=== PATIENT | female | born 1955 | race Caucasian/White ===

== ENCOUNTER 2017-11-12 20:30 | Observation (INO) ==
[2017-11-12] MEDS ORDERED: Aspirin 81 MG TAB.CHEW PO ONE (20:45)
--- NOTE | 2017-11-12 20:53 | Emergency Department Note ---
Disposition Clinical Impression: Hyponatremia, Hypertensive urgency, Foreign body sensation in throat Chest pain Qualifiers: Chest pain type: unspecified Qualified Code(s): R07.9 - Chest pain, unspecified Disposition: Admitted As Inpatient Condition: Fair Referrals: Elda Anders [Primary Care Provider] - Forms: ED Satisfaction Letter Time of Disposition: 22:49 Chest Pain HPI - General Chief Complaint: ED Chest Pain Stated Complaint: cp Time Seen by Provider: 11/12/17 20:37 Source: patient, family Mode of arrival: ambulatory Limitations: no limitations Vital Signs Reviewed: Yes Nursing Notes Reviewed: Yes - History of Present Illness HPI Narrative: Patient presents to the ED with chief complaint of chest pain. States that it started earlier in the day. She actually went to go see her PCP and they said that she was very hypertensive. They were going to get lab work, but told her if she started feeling worse to go to the ER. States she just does not feel well. She is slightly short of breath as well. States that the heavy pressure in her chest. Does not radiate. Denies any fever or chills. No abdominal pain , nausea, vomiting, diarrhea. Severity scale (1-10): 3 - Related Data Home Medications Medication Instructions Recorded Confirmed Aspirin 81 mg PO DAILY 11/24/15 11/12/17 Bupropion HCl [Wellbutrin Xl] 300 mg PO DAILY 11/24/15 11/12/17 Cholecalciferol (Vitamin D3) 5,000 unit PO QWEEK 11/24/15 11/12/17 [Vitamin D3] FLUoxetine HCl [Prozac] 20 mg PO DAILY 11/24/15 11/12/17 Fexofenadine HCl 180 mg PO DAILY 11/24/15 11/12/17 Gabapentin [Neurontin] 300 mg PO DAILY 11/24/15 11/12/17 Multivitamin with Iron 1 each PO DAILY 11/24/15 11/12/17 [Multivitamins with Iron] Simvastatin [Zocor] 20 mg PO QPM 11/24/15 11/12/17 Trazodone HCl 150 mg PO HS 11/24/15 11/12/17 metFORMIN [Glucophage] 500 mg PO BIDWM 11/24/15 11/12/17 risperiDONE [Risperidone] 1 mg PO DAILY 11/24/15 11/12/17 Lisinopril-HCTZ 20-12.5 [Prinzide 1 each PO DAILY 12/08/15 11/12/17 20-12.5] Omeprazole [PriLOSEC] 20 mg PO DAILY 12/10/15 11/12/17 Montelukast Sodium [Singulair] 10 mg PO DAILY 12/31/16 11/12/17 Ferrous Sulfate [Iron] 325 mg PO DAILY 10/20/17 11/12/17 Buspirone HCl [Buspar] 10 mg PO BID PRN 11/12/17 11/12/17 Guaifenesin [Mucinex] 600 mg PO BID 11/12/17 11/12/17 Previous Rx's Medication Instructions Recorded Loratadine [Claritin] 10 mg PO DAILY #10 tablet 10/20/17 Allergies Allergy/AdvReac Type Severity Reaction Status Date / Time codeine AdvReac Hives Verified 10/20/17 14:29 bees Allergy Mild Hives Uncoded 10/20/17 14:29 Review of Systems: As reviewed in the HPI. All other systems reviewed are negative or normal. Chest Pain PMH - Past Medical History Medical history: Reports: COPD, diabetes, GERD, hyperlipidemia, hypertension Surgical history: Reports: non-contributory, hysterectomy, other Psychiatric history: Reports: anxiety, depression, other - Social History Smoking Status: Never smoker Alcohol use: Reports: none Drug use: Reports: none Physical Exam CONSTITUTIONAL: [well appearing, alert and in no acute distress] EYES: [EOMI, clear conjunctiva, PERRLA] HENT: [Normocephalic, atraumatic, moist mucus membranes, normal oropharynx] NECK: [normal inspection, full ROM, trachea midline, no obvious swelling] PULMONARY: [normal lung sounds bilaterally, normal chest rise and fall, no respiratory distress or stridor, no wheezes, no rales, no rhonchi CARDIOVASCULAR: [regular rate, regular rhythm, normal heart sounds, no murmurs, distal extremities are warm and well perfused] GASTROINSTESTINAL: [soft, non-tender, non-rigid, non-distended, no guarding, no rebound, normal bowel sounds] GENITOURINARY/RECTAL: [deferred] NEUROLOGIC: [Alert, oriented x3, normal speech, moves all extremities] EXTREMITIES: [Normal inspection, full ROM, no tenderness, no pedal edema, normal capillary refill] MUSCULOSKELETAL: [no gross deformities, atraumatic] SKIN: [No cyanosis, no diaphoresis, normal color, warm, no rash] PSYCHIATRIC: [normal mood and affect] - General Limitations: no limitations General appearance: alert, in no apparent distress Course Course Narrative: Patient presenting with chest pain. We will get workup. - Reevaluation(s) Reevaluation #1: Patient reevaluated. Patient states that 3 days ago she had a trazodone pill stuck in her throat. Started having chest pain after that. She went to an outside hospital is that she would probably need to be scoped or have an esophageal dilation. States she has had some trouble swallowing and food getting caught. States that the pain is gone now. She does report she has been unable to take her pills because she has been having the crush them up and has had trouble swallowing. Patient is also quite anxious. States that she does not tolerate scanners well and did not want any CAT scans. She states that the Ativan did help, but she still did not feel like her symptoms were gone. Time: 22:36 Reevaluation #2: Patient admitted to the hospital service. Vital Signs Temperature 98.4 F 11/12/17 20:41 Pulse Rate 112 11/12/17 20:41 Respiratory Rate 20 11/12/17 20:41 Blood Pressure 200/92 11/12/17 20:41 O2 Sat by Pulse Oximetry 95 11/12/17 20:41 Temperature 98.4 F 11/12/17 20:41 Pulse Rate 94 11/12/17 22:00 Respiratory Rate 20 11/12/17 20:41 Blood Pressure 193/99 11/12/17 22:00 O2 Sat by Pulse Oximetry 93 11/12/17 22:00 Oxygen Delivery Oxygen Delivery Room Air Chest Pain - Medical Records Medical records reviewed: Yes I reviewed the patient's medical records. - Lab Data Lab results reviewed: Yes I reviewed the patient's lab results. Result diagrams: 11/12/17 20:45 11/12/17 20:45 Lab Results 11/12/17 11/12/17 11/12/17 Range/Units 20:41 20:45 20:45 WBC 15.7 H (4.3-11.1) K/mcL RBC 4.63 (3.82-4.97) M/mcL Hgb 12.3 (11.5-15.4) g/dL Hct 34.2 L (35.3-44.9) % MCV 73.9 L (83.0-100.0) fL MCH 26.6 L (28.0-33.3) pg MCHC 36.0 H (31.6-35.5) g/dL RDW 12.5 (11.5-14.5) % Plt Count 482 H (140-400) K/mcL MPV 9.0 L (9.4-12.4) fL Immature Gran % 1.8 (0-4) % Seg Neutrophils % 88.4 % Lymphocytes % 7.9 % Monocytes % 1.6 % Eosinophils % 0.1 % Basophils % 0.2 % Neutrophils # 13.9 H (1.6-8.9) K/mcL Lymphocytes # 1.3 (0.6-4.6) K/mcL Monocytes # 0.3 (0.0-1.3) K/mcL Eosinophils # 0.0 (0.0-0.6) K/mcL Basophils # 0.0 (0.0-0.2) K/mcL Immature Plt Fraction 3.6 (1.1-6.1) % D-Dimer < 215 (0-500) ng/mLFEU Sodium 121 L (136-145) mEq/L Potassium 4.5 (3.5-5.1) mEq/L Chloride 84 L (98-107) mEq/L Carbon Dioxide 22 L (23-29) mEq/L BUN 9 (8-23) mg/dL Creatinine 0.81 (0.60-1.20) mg/dL Est GFR ( Amer) > 60 (> 60) Est GFR (Non-Af Amer) > 60 (> 60) BUN/Creatinine Ratio 11 (6-26) Glucose 206 H (70-105) mg/dL Calculated Osmolality 257 L (280-300) Calcium 10.5 H (8.6-10.3) mg/dL Troponin I < 0.03 (< 0.04) ng/mL - Radiology Data Radiology results reviewed: Yes I reviewed the patient's radiology results. - EKG Data EKG attestation: Yes I reviewed and interpreted this EKG. EKG results narrative: Sinus tach, rate 111, normal axis, no acute ischemic changes, normal intervals
[2017-11-12 21:00] LABS: Basophils % 0.2 %; Eosinophils % 0.1 %; Hematocrit 34.2 % (35.3-44.9); Hemoglobin 12.3 g/dL (11.5-15.4); Immature Granulocytes % 1.8 % (0-4); Immature Platelets 3.6 % (1.1-6.1); Lymphocytes # 1.3 K/mcL (0.6-4.6); Lymphocytes % 7.9 %; Mean Corpuscular Hemoglobin 26.6 pg (28.0-33.3); Mean Corpuscular Volume 73.9 fL (83.0-100.0); Monocytes # 0.3 K/mcL (0.0-1.3); Monocytes % 1.6 %; Neutrophils # 13.9 K/mcL (1.6-8.9); Platelet Count 482 K/mcL (140-400); Red Blood Count 4.63 M/mcL (3.82-4.97); Red Cell Distribution Width 12.5 % (11.5-14.5); Segmented Neutrophils % 88.4 %
[2017-11-12 21:21] LABS: BUN/Creatinine Ratio 11 (6-26); Blood Urea Nitrogen 9 mg/dL (8-23); Calcium 10.5 mg/dL (8.6-10.3); Carbon Dioxide 22 mEq/L (23-29); Chloride 84 mEq/L (98-107); Glucose 206 mg/dL (70-105); Osmolality,Calculated 257 (280-300); Potassium 4.5 mEq/L (3.5-5.1); Sodium 121 mEq/L (136-145); Troponin I < 0.03 ng/mL (< 0.04); eGFR For Non-African Americans > 60 (> 60)
[2017-11-12] MEDS ORDERED: *HR* Labetalol 100 MG/20 ML MDV IVP ONE ×2 (21:31→22:32)
[2017-11-12] MEDS ORDERED: 0.9 % Sodium Chloride 1,000 ML IVC ONE (21:32)
--- NOTE | 2017-11-12 21:50 | Emergency Department Note ---
Disposition Clinical Impression: Hyponatremia, Chest pain, Hypertensive urgency, Foreign body sensation in throat Disposition: Admitted As Inpatient Condition: Fair General Adult HPI - General Chief complaint: ED Chest Pain Stated complaint: cp Time Seen by Provider: 11/12/17 20:37 Source: patient, family Mode of arrival: ambulatory Limitations: no limitations - History of Present Illness Pain Scale: 3 - Related Data Home Medications Medication Instructions Recorded Confirmed Aspirin 81 mg PO DAILY 11/24/15 11/12/17 Bupropion HCl [Wellbutrin Xl] 300 mg PO DAILY 11/24/15 11/12/17 Cholecalciferol (Vitamin D3) 5,000 unit PO QWEEK 11/24/15 11/12/17 [Vitamin D3] FLUoxetine HCl [Prozac] 20 mg PO DAILY 11/24/15 11/12/17 Fexofenadine HCl 180 mg PO DAILY 11/24/15 11/12/17 Gabapentin [Neurontin] 300 mg PO DAILY 11/24/15 11/12/17 Multivitamin with Iron 1 each PO DAILY 11/24/15 11/12/17 [Multivitamins with Iron] Simvastatin [Zocor] 20 mg PO QPM 11/24/15 11/12/17 Trazodone HCl 150 mg PO HS 11/24/15 11/12/17 metFORMIN [Glucophage] 500 mg PO BIDWM 11/24/15 11/12/17 risperiDONE [Risperidone] 1 mg PO DAILY 11/24/15 11/12/17 Lisinopril-HCTZ 20-12.5 [Prinzide 1 each PO DAILY 12/08/15 11/12/17 20-12.5] Omeprazole [PriLOSEC] 20 mg PO DAILY 12/10/15 11/12/17 Montelukast Sodium [Singulair] 10 mg PO DAILY 12/31/16 11/12/17 Ferrous Sulfate [Iron] 325 mg PO DAILY 10/20/17 11/12/17 Buspirone HCl [Buspar] 10 mg PO BID PRN 11/12/17 11/12/17 Guaifenesin [Mucinex] 600 mg PO BID 11/12/17 11/12/17 Previous Rx's Medication Instructions Recorded Loratadine [Claritin] 10 mg PO DAILY #10 tablet 10/20/17 Allergies Allergy/AdvReac Type Severity Reaction Status Date / Time codeine AdvReac Hives Verified 10/20/17 14:29 bees Allergy Mild Hives Uncoded 10/20/17 14:29 Past Medical History - Past Medical History Medical history: Reports: COPD, diabetes, GERD, hyperlipidemia, hypertension Surgical history: Reports: non-contributory, hysterectomy, other Psychiatric history: Reports: anxiety, depression, other - Social History Smoking Status: Never smoker Smokeless Tobacco Status: No Alcohol use: Reports: none Drug use: Reports: none Physical Exam - General Limitations: no limitations General appearance: alert, in no apparent distress Course Vital Signs Temperature 98.4 F 11/12/17 20:41 Pulse Rate 112 11/12/17 20:41 Respiratory Rate 20 11/12/17 20:41 Blood Pressure 200/92 11/12/17 20:41 O2 Sat by Pulse Oximetry 95 11/12/17 20:41 Temperature 98.0 F 11/12/17 23:52 Pulse Rate 97 11/12/17 23:52 Respiratory Rate 16 11/12/17 23:52 Blood Pressure 181/81 11/12/17 23:52 O2 Sat by Pulse Oximetry 95 11/12/17 23:52 Oxygen Delivery Oxygen Delivery Room Air Medical Decision Making - Lab Data Result diagrams: 11/12/17 20:45 11/12/17 20:45 Lab Results 11/12/17 11/12/17 11/12/17 Range/Units 20:41 20:45 20:45 WBC 15.7 H (4.3-11.1) K/mcL RBC 4.63 (3.82-4.97) M/mcL Hgb 12.3 (11.5-15.4) g/dL Hct 34.2 L (35.3-44.9) % MCV 73.9 L (83.0-100.0) fL MCH 26.6 L (28.0-33.3) pg MCHC 36.0 H (31.6-35.5) g/dL RDW 12.5 (11.5-14.5) % Plt Count 482 H (140-400) K/mcL MPV 9.0 L (9.4-12.4) fL Immature Gran % 1.8 (0-4) % Seg Neutrophils % 88.4 % Lymphocytes % 7.9 % Monocytes % 1.6 % Eosinophils % 0.1 % Basophils % 0.2 % Neutrophils # 13.9 H (1.6-8.9) K/mcL Lymphocytes # 1.3 (0.6-4.6) K/mcL Monocytes # 0.3 (0.0-1.3) K/mcL Eosinophils # 0.0 (0.0-0.6) K/mcL Basophils # 0.0 (0.0-0.2) K/mcL Immature Plt Fraction 3.6 (1.1-6.1) % D-Dimer < 215 (0-500) ng/mLFEU Sodium 121 L (136-145) mEq/L Potassium 4.5 (3.5-5.1) mEq/L Chloride 84 L (98-107) mEq/L Carbon Dioxide 22 L (23-29) mEq/L BUN 9 (8-23) mg/dL Creatinine 0.81 (0.60-1.20) mg/dL Est GFR ( Amer) > 60 (> 60) Est GFR (Non-Af Amer) > 60 (> 60) BUN/Creatinine Ratio 11 (6-26) Glucose 206 H (70-105) mg/dL Calculated Osmolality 257 L (280-300) Calcium 10.5 H (8.6-10.3) mg/dL Troponin I < 0.03 (< 0.04) ng/mL Attestation Statement - Attestation Attestation: I examined this patient and my medical decision-making was reviewed with the Resident Physician. I agree with the documented findings, disposition and treatment plan as described except to the extent set forth below. Patient presents to the ED with a chief complaint of chest heaviness. Onset a couple of hours ago. Patient saw her PCP earlier today for high blood pressure. She states they "did not really do anything." She states now her chest feels heavy. On examination of the blood pressure 200/92. Heart regular lungs clear and she is in no distress. Plan. Cardiac workup with d-dimer. Labetalol reevaluate. Patient's blood pressure improved to 160 systolic after IV labetalol. Cardiac workup is negative. She is admitted to medicine for further workup. Chest X-Ray 11/12/17 20:45 IMPRESSION: No acute pulmonary process. D/ / Carlos Mcdonald / Carlos Mcdonald Interpreting Provider: Carlos Mcdonald
[2017-11-12] MEDS ORDERED: *HR* LORazepam 2 MG/ML VIAL IVP ONE (22:04)
[2017-11-12] MEDS ORDERED: Ketorolac 30 MG/ML VIAL IVP ONE (23:35)
[2017-11-12] MEDS ORDERED: Dextrose Gel 15 GM/37.5 ML TUBE PO PRN ×2 (23:37)
[2017-11-12] MEDS ORDERED: 0.9 % Sodium Chloride 1,000 ML IVC SCH (23:45)
[2017-11-12] MEDS ORDERED: cloNIDine HCl 0.1 MG TABLET PO ONE (23:59)
--- NOTE | 2017-11-13 00:11 | Internal Med History&Physical ---
Date of Encounter: 11/12/17 Time of Encounter: 23:59 Internal Medicine - H&P: HPI Chief complaint: Chest heaviness Admitted From: Home Plans for Post Hospital Care: Home History of present illness: Mariel Stephen is a 62 year old woman with diabetes and poorly controlled hypertension who presents to the ER with the complaint of chest heaviness that started today. Information obtained from her is that over the past few days her blood pressure has been significantly uncontrolled and that she saw her PCP earlier today with no recommendations given. She then began to feel as though her chest was heavy which is a new occurrence therefore decided to seek medical attention. On arrival her blood pressure was 200/92 mmHg. Thus far she was given 20 mg of labetalol IVP with no significant response. She also received loading dose of aspirin and 1 mg of lorazepam for anxiety. She had no ischemic electrocardiographic changes and her initial troponin was negative. She denies an active smoking history stating that she quit 3 years ago. On a different note, she states that a few days ago while swallowing one of her tablets she felt it became stuck in her throat and she had difficulty swallowing after that. Now she says that although she was able to push the pill down she feels significant soreness in her throat with ongoing difficulty swallowing solids and can only tolerate pureed and full liquids. Past Med Surg Social Fam HX - Past Medical History Medical history: COPD, diabetes, GERD, hyperlipidemia, hypertension Psychiatric history: anxiety, depression, other - Past Surgical History Surgical History: non-contributory, hysterectomy, other Additional surgical history: partial hysterectomy, tubal ligation - Social History Smoking Status: Never smoker Smokeless Tobacco Status: No Alcohol use: none Drug use: none - Family History Mother Living Status: Still Living Hx Family Cardiac Disorders: Yes (HTN) Father Living Status: Hx Family Cardiac Disorders: Yes Hx Family Endocrine Disorder: Yes (DM) Internal Medicine - H&P: Meds Aspirin 81 mg PO DAILY 11/24/15 [History] Bupropion HCl [Wellbutrin Xl] 300 mg PO DAILY 11/24/15 [History] Cholecalciferol (Vitamin D3) [Vitamin D3] 5,000 unit PO QWEEK 11/24/15 [History] FLUoxetine HCl [Prozac] 20 mg PO DAILY 11/24/15 [History] Fexofenadine HCl 180 mg PO DAILY 11/24/15 [History] Gabapentin [Neurontin] 300 mg PO DAILY 11/24/15 [History] Multivitamin with Iron [Multivitamins with Iron] 1 each PO DAILY 11/24/15 [ History] Simvastatin [Zocor] 20 mg PO QPM 11/24/15 [History] Trazodone HCl 150 mg PO HS 11/24/15 [History] metFORMIN [Glucophage] 500 mg PO BIDWM 11/24/15 [History] risperiDONE [Risperidone] 1 mg PO DAILY 11/24/15 [History] Lisinopril-HCTZ 20-12.5 [Prinzide 20-12.5] 1 each PO DAILY 12/08/15 [History] Omeprazole [PriLOSEC] 20 mg PO DAILY 12/10/15 [History] Montelukast Sodium [Singulair] 10 mg PO DAILY 12/31/16 [History] Ferrous Sulfate [Iron] 325 mg PO DAILY 10/20/17 [History] Loratadine [Claritin] 10 mg PO DAILY #10 tablet 10/20/17 [Rx] Buspirone HCl [Buspar] 10 mg PO BID PRN 11/12/17 [History] Guaifenesin [Mucinex] 600 mg PO BID 11/12/17 [History] 3 Allergy/AdvReac Type Severity Reaction Status Date / Time codeine AdvReac Hives Verified 10/20/17 14:29 bees Allergy Mild Hives Uncoded 10/20/17 14:29 All Systems PM: A 10-system review of systems was performed and is negative for pertinent findings except as documented above in the HPI. - Constitutional Vitals: Temp Pulse Resp BP Pulse Ox 98.0 F 97 16 181/81 95 11/12/17 23:52 11/12/17 23:52 11/12/17 23:52 11/12/17 23:52 11/12/17 23:52 Exam: Vitals: Reviewed General: Obese, NAD Skin: Warm and supple HEENT: Moist mucous membranes. No conjunctivae pallor. Neck: No lymphadenopathy. No JVD. No carotid bruits. No palpable thyroid. Chest: Normal thoracic expansion. Normal breath sounds. Clear to auscultation. Heart: Normal S1 & S2; rhythmic. No rubs or murmurs. Abdomen: Non-distended, soft and non-tender to palpation. No peritoneal reaction. Extremities: No clubbing, cyanosis or edema. No calf tenderness. Normal distal pulses. Neurological: Awake, alert and oriented to person, place and time. No focal deficits. Psych: Affect appropriate. Internal Med - H&P Results - Labs CBC & Chem 7: 11/12/17 20:45 11/12/17 20:45 - Assessment and plan (1) Chest pain Current Visit: Yes Status: Acute Assessment and plan: Low risk of ACS based on her HEART score and more likely associated with myocardial strain from her hypertensive state and she is equally having headache in the current setting. However given her comorbidities we can observe her overnight, monitor on telemetry, repeat EKGs and another troponin for assessment. For now no indication for anticoagulation however she has received loading dose of aspirin. Qualifiers: Chest pain type: unspecified Qualified Code(s): R07.9 - Chest pain, unspecified (2) Hypertensive urgency Current Visit: Yes Status: Acute Assessment and plan: appears associated with nonadherence to medications given her recent difficulty and swallowing pills. We shall resume by mouth medications in the morning. (3) Electrolyte and fluid disorder Current Visit: Yes Status: Acute Assessment and plan: The patient may have dehydration due to poor oral intake due to her complaint of dysphagia which is now led to a hyponatremic and hypochloremic state. We shall supplement with IV fluids however remaining cautious because of her hypertensive state. Check BMP again in the morning. (4) Sensation of foreign body in esophagus Current Visit: Yes Status: Acute Assessment and plan: Given the new onset dysphagia which is intermittent spot causing intolerance to solids she will benefit from GI consultation and perhaps evaluation by endoscopy. Therefore we will keep nothing by mouth for now. (5) Diabetes mellitus Current Visit: Yes Status: Chronic Assessment and plan: Hold metformin and place on insulin sliding scale during hospitalization. Qualifiers: Diabetes mellitus type: type 2 Diabetes mellitus intermediate card tender insulin use: without mcfp use Diabetes mellitus complication status: without complication Qualified Code(s): E11.9 - Type 2 diabetes mellitus without complications (6) Dyslipidemia Current Visit: Yes Status: Chronic Assessment and plan: She remains on statin therapy. (7) Obesity (BMI 30-39.9) Current Visit: Yes Status: Chronic Assessment and plan: She will benefit from nutrition consultation. (8) Leukocytosis Current Visit: Yes Status: Acute Assessment and plan: No overt source of infection is identified. May be associated with dehydrated state therefore we will reassess response to fluid resuscitation Qualifiers: Leukocytosis type: unspecified Qualified Code(s): D72.829 - Elevated white blood cell count, unspecified (9) DVT prophylaxis Current Visit: Yes Status: Acute Assessment and plan: Subcutaneous heparin indicated. - Time Spent With Patient Total time spent is greater than 50% in coordination of care (as documented) at patient's floor/unit and/or counseling patient: Greater than 35 minutes
[2017-11-13] MEDS ORDERED: *HR* Labetalol 20 MG/4 ML SYRINGE IVP ONE (00:30)
[2017-11-13] MEDS ORDERED: traZODone 50 MG TABLET PO ONE (02:07)
[2017-11-13 05:32] LABS: Basophils % 0.1 %; Eosinophils % 0.1 %; Hematocrit 29.2 % (35.3-44.9); Hemoglobin 10.2 g/dL (11.5-15.4); Immature Granulocytes % 1.2 % (0-4); Lymphocytes % 13.6 %; Mean Corpuscular HGB Conc 34.9 g/dL (31.6-35.5); Mean Corpuscular Hemoglobin 26.7 pg (28.0-33.3); Mean Corpuscular Volume 76.4 fL (83.0-100.0); Mean Platelet Volume 9.5 fL (9.4-12.4); Monocytes % 6.9 %; Neutrophils # 11.4 K/mcL (1.6-8.9); Platelet Count 308 K/mcL (140-400); Red Blood Count 3.82 M/mcL (3.82-4.97); Red Cell Distribution Width 12.4 % (11.5-14.5); Segmented Neutrophils % 78.1 %
[2017-11-13 05:56] LABS: BUN/Creatinine Ratio 13 (6-26); Blood Urea Nitrogen 12 mg/dL (8-23); Calcium 9.4 mg/dL (8.6-10.3); Carbon Dioxide 22 mEq/L (23-29); Chloride 88 mEq/L (98-107); Glucose 151 mg/dL (70-105); Osmolality,Calculated 257 (280-300); Sodium 122 mEq/L (136-145); eGFR For Non-African Americans > 60 (> 60)
[2017-11-13] MEDS: *HR* Heparin 5,000 UNIT/ML VIAL SQ SCH ×3 (05:57→20:34)
[2017-11-13] MEDS: Insulin LISPRO 300 UNITS/3 ML VIAL SQ SCH ×3 (07:30→16:49)
[2017-11-13] MEDS ORDERED: Loratadine 10 MG TABLET PO SCH (09:00)
[2017-11-13] MEDS ORDERED: Lisinopril-HCTZ 20-12.5mg TABLET PO SCH (09:00)
[2017-11-13] MEDS: risperiDONE 1 MG TABLET PO SCH (09:31)
[2017-11-13] MEDS: FLUoxetine 20 MG CAPSULE PO SCH (09:31)
[2017-11-13] MEDS: Aspirin 81 MG TAB.CHEW PO SCH (09:31)
[2017-11-13] MEDS: Multivit/Ca/Min/Fe/FA 1 TAB TABLET PO SCH (09:31)
[2017-11-13] MEDS: Loratadine 10 MG TABLET PO SCH (09:31)
[2017-11-13] MEDS: BuPROPion XL (24 HR) 150 MG TABLET PO SCH (09:31)
[2017-11-13] MEDS: Gabapentin 300 MG CAPSULE PO SCH (09:33)
[2017-11-13 10:10] LABS: % Iron Saturation 18 % (15-50); Iron 59 mcg/dL (50-170); Transferrin 239 mg/dL (203-362)
[2017-11-13] MEDS: amLODIPine 5 MG TABLET PO SCH (10:23)
[2017-11-13 10:28] LABS: Ferritin 99 ng/mL (10-120)
--- NOTE | 2017-11-13 12:01 | Gastroenterology Consult Note ---
<Dc Beckford - Last Filed: 11/13/17 11:57> Date of Encounter: 11/13/17 Time of Encounter: 10:40 - Assessment and plan (1) Dysphagia Current Visit: Yes Status: Acute Assessment and plan: Patient reports having difficulty swallowing pills and some solid food. Plan for EGD tomorrow with possible dilation to r/o structural causes such as stricture, tumor,etc vs esophageal motility disorder. Keep patient NPO at midnight. Qualifiers: Dysphagia type: unspecified Qualified Code(s): R13.10 - Dysphagia, unspecified (2) Anemia Current Visit: Yes Status: Acute Assessment and plan: Hgb 10.2 with MCV 76.4. Check iron profile and ferritin. Last colonoscopy 2 years ago in [place], and was normal per patient report. Plan for EGD tomorrow. Qualifiers: Anemia type: unspecified type Qualified Code(s): D64.9 - Anemia, unspecified - Time Spent With Patient Total time spent is greater than 50% in coordination of care (as documented) at patient's floor/unit and/or counseling patient: GI History of Present Illness - Data of Consult Patient: new to practice Consult date: 11/13/17 Requesting Physician: Megan Torres MD - Consult Narrative Reason for consult: Dysphagia History of present illness: Ms. Stephen is a 62 year old female with PMHx of COPD, DM, poorly controlled HTN presented to the ED with complaints of chest heaviness that started the day of admission. Her BP has been uncontrolled over the past few days. On arrival, BP 200/92 and was given 20 mg of labetalol IVP with no significant response. She states that a few days ago while swallowing one of her tablets she felt it became stuck in her throat and she had difficulty swallowing after that. Now she says that although she was able to push the pill down she feels significant soreness in her throat with ongoing difficulty swallowing solids and can only tolerate pureed and full liquids. Procedures: Colonoscopy 2 years ago, [place], [place]: Normal per patient report. NSAIDs: ASA Anticoagulation: None Past Med Surg Social Fam HX - Past Medical History Medical history: COPD, diabetes, GERD, hyperlipidemia, hypertension Psychiatric history: anxiety, depression, other - Past Surgical History Surgical History: non-contributory, hysterectomy, other Additional surgical history: partial hysterectomy, tubal ligation - Social History Smoking Status: Never smoker Smokeless Tobacco Status: No Alcohol use: none Drug use: none - Family History Mother Living Status: Still Living Hx Family Cardiac Disorders: Yes (HTN) Father Living Status: Hx Family Cardiac Disorders: Yes Hx Family Endocrine Disorder: Yes (DM) - Gastrointestinal Gastrointestinal: Present: as per HPI - Constitutional Constitutional: as per HPI - EENT Eyes: as per HPI Ears: Present: as per HPI Nose, mouth and throat: Present: as per HPI - Cardiovascular Cardiovascular ROS: Present: as per HPI - Respiratory Respiratory IM: Present: as per HPI - Genitourinary Genitourinary: Absent: change in color, Urinary frequency - Neurological ROS Neurological GI: Present: as per HPI - Hematologic/Lymphatic Hematologic/Lymphatic pediatric: Present: as per HPI - Musculoskeletal Musculoskeletal ROS GI: Present: as per HPI - Integumentary Integumentary GI: Present: as per HPI - Psychiatric ROS Psychiatric GI: Present: as per HPI - Endocrine Endocrine IM: Present: as per HPI - Constitutional Vitals: Temp Pulse Resp BP Pulse Ox 98.1 F 91 16 149/76 96 11/13/17 11:31 11/13/17 11:31 11/13/17 11:31 11/13/17 11:31 11/13/17 11:31 General appearance: Present: cooperative, A&O X 3, no acute distress, answers questions appropriately - Head Head exam: Present: atraumatic, normocephalic - Eye Eye exam: Present: normal appearance, sclera anicteric - ENT ENT exam: Present: mucous membranes dry - Neck Neck exam general surgery: Present: normal inspection, trachea midline - Respiratory Respiratory exam: Present: CTAB. Absent: rales, rhonchi - Cardiovascular Cardiovascular exam: Present: RRR, +S1, +S2 - GI/Abdominal GI/Abdominal exam: Present: soft, no peritoneal signs. Absent: distended, firm , guarding, tenderness - Rectal Rectal exam: Present: deferred - Extremities Exam Extremities exam: Present: warm - Neurological Exam Neurological exam: Present: no focal deficits - Psychiatric Psychiatric exam: Present: normal affect, normal mood - Skin Skin exam: Present: dry, intact, normal color, warm Results - Labs CBC & Chem 7: 11/13/17 05:02 11/13/17 05:02 Labs: Last Result Calcium 9.4 mg/dL (8.6-10.3) 11/13/17 05:02 Iron 59 mcg/dL (50-170) 11/13/17 05:02 % Saturation 18 % (15-50) 11/13/17 05:02 Transferrin 239 mg/dL (203-362) 11/13/17 05:02 Ferritin 99 ng/mL (10-120) 11/13/17 05:02 Troponin I < 0.03 ng/mL (< 0.04) 11/13/17 05:02 Entire Visit Hgb 10.2 g/dL (11.5-15.4) L D 11/13/17 05:02 Hct 29.2 % (35.3-44.9) L 11/13/17 05:02 Ferritin 99 ng/mL (10-120) 11/13/17 05:02 - ABG ABG results: PT/INR, D-dimer D-Dimer < 215 ng/mLFEU (0-500) 11/12/17 20:41 Consult Discharge Plan - Plan Referrals: Elda Anders RAILROAD SIGNAL AND SWITCH OPERATOR [Advanced Practice Nurse] - <Otto Downing - Last Filed: 11/13/17 21:48> Date of Encounter: 11/13/17 Time of Encounter: 14:00 - Time Spent With Patient Total time spent is greater than 50% in coordination of care (as documented) at patient's floor/unit and/or counseling patient: GI History of Present Illness - Data of Consult Requesting Physician: Megan Torres MD - Consult Narrative History of present illness: Ms. Stephen is a 62 year old female - Constitutional Vitals: Temp Pulse Resp BP Pulse Ox 98.2 F 91 18 138/65 96 11/13/17 18:56 11/13/17 18:56 11/13/17 18:56 11/13/17 18:56 11/13/17 20:39 Results - Labs CBC & Chem 7: 11/13/17 05:02 11/13/17 05:02 Labs: Last Result Calcium 9.4 mg/dL (8.6-10.3) 11/13/17 05:02 Iron 59 mcg/dL (50-170) 11/13/17 05:02 % Saturation 18 % (15-50) 11/13/17 05:02 Transferrin 239 mg/dL (203-362) 11/13/17 05:02 Ferritin 99 ng/mL (10-120) 11/13/17 05:02 Troponin I < 0.03 ng/mL (< 0.04) 11/13/17 05:02 Entire Visit Hgb 10.2 g/dL (11.5-15.4) L D 11/13/17 05:02 Hct 29.2 % (35.3-44.9) L 11/13/17 05:02 Ferritin 99 ng/mL (10-120) 11/13/17 05:02 - ABG ABG results: PT/INR, D-dimer D-Dimer < 215 ng/mLFEU (0-500) 11/12/17 20:41 - Attending Attestation I have personally performed a face to face evaluation on this patient. I have reviewed and agree with the care plan. History and Exam by me shows: Pt seen, complaining dysphagia.O/E : No epigastric tanderness. A: Pt with dyspahgia. Rec: EGD am
[2017-11-13] MEDS ORDERED: traZODone 50 MG TABLET PO SCH (21:00)
[2017-11-13] MEDS ORDERED: Insulin LISPRO 300 UNITS/3 ML VIAL SQ SCH (21:00)
[2017-11-14 04:41] LABS: Eosinophils % 1.6 %; Hematocrit 30.4 % (35.3-44.9); Hemoglobin 10.2 g/dL (11.5-15.4); Immature Granulocytes % 1.3 % (0-4); Lymphocytes % 28.6 %; Mean Corpuscular HGB Conc 33.6 g/dL (31.6-35.5); Mean Corpuscular Hemoglobin 26.2 pg (28.0-33.3); Mean Corpuscular Volume 77.9 fL (83.0-100.0); Mean Platelet Volume 9.5 fL (9.4-12.4); Monocytes % 6.7 %; Platelet Count 303 K/mcL (140-400); Red Cell Distribution Width 12.9 % (11.5-14.5); Segmented Neutrophils % 61.3 %
[2017-11-14 04:42] LABS: Basophils % 0.5 %; Eosinophils # 0.1 K/mcL (0.0-0.6); Lymphocytes # 2.4 K/mcL (0.6-4.6); Monocytes # 0.6 K/mcL (0.0-1.3); Neutrophils # 5.1 K/mcL (1.6-8.9)
[2017-11-14 05:00] LABS: BUN/Creatinine Ratio 14 (6-26); Blood Urea Nitrogen 11 mg/dL (8-23); Calcium 9.7 mg/dL (8.6-10.3); Carbon Dioxide 26 mEq/L (23-29); Chloride 93 mEq/L (98-107); Glucose 145 mg/dL (70-105); Osmolality,Calculated 268 (280-300); Potassium 3.7 mEq/L (3.5-5.1); Sodium 128 mEq/L (136-145); eGFR For Non-African Americans > 60 (> 60)
[2017-11-14] MEDS: *HR* Heparin 5,000 UNIT/ML VIAL SQ SCH ×2 (05:20→14:08)
[2017-11-14] MEDS: Gabapentin 300 MG CAPSULE PO SCH (07:20)
[2017-11-14] MEDS: Loratadine 10 MG TABLET PO SCH (07:25)
[2017-11-14] MEDS: BuPROPion XL (24 HR) 150 MG TABLET PO SCH (07:25)
[2017-11-14] MEDS: amLODIPine 5 MG TABLET PO SCH (07:25)
[2017-11-14] MEDS: Aspirin 81 MG TAB.CHEW PO SCH (07:25)
[2017-11-14] MEDS: Multivit/Ca/Min/Fe/FA 1 TAB TABLET PO SCH (07:25)
[2017-11-14] MEDS: risperiDONE 1 MG TABLET PO SCH (07:25)
[2017-11-14] MEDS: FLUoxetine 20 MG CAPSULE PO SCH (07:25)
[2017-11-14] MEDS: Insulin LISPRO 300 UNITS/3 ML VIAL SQ SCH ×2 (07:52→11:47)
[2017-11-14] MEDS ORDERED: amLODIPine 5 MG TABLET PO SCH (09:00)
[2017-11-14] MEDS ORDERED: Lisinopril 20 MG TABLET PO SCH (09:00)
--- NOTE | 2017-11-14 12:42 | Anesthesia Evaluation PreOp ---
Date of Encounter: 11/14/17 Time of Encounter: 12:40 - Past History Planned Operation: EGD Cardiac History: HTN, Hyperlipidemia Pulmonary History: Asthma, COPD PARING MACHINE OPERATOR History: Other (Anxiety/Depression) Other Medical History: Diabetes Type II, GERD Anesthesia History: No Prior Anesthetic Complications, Past Anesthesia (tubal) : No Alcohol Use: none Drug use: none Medications and Allergies Aspirin 81 mg PO DAILY 11/24/15 [History] Bupropion HCl [Wellbutrin Xl] 300 mg PO DAILY 11/24/15 [History] Cholecalciferol (Vitamin D3) [Vitamin D3] 5,000 unit PO QWEEK 11/24/15 [History] FLUoxetine HCl [Prozac] 20 mg PO DAILY 11/24/15 [History] Fexofenadine HCl 180 mg PO DAILY 11/24/15 [History] Gabapentin [Neurontin] 300 mg PO DAILY 11/24/15 [History] Multivitamin with Iron [Multivitamins with Iron] 1 each PO DAILY 11/24/15 [ History] Simvastatin [Zocor] 20 mg PO QPM 11/24/15 [History] Trazodone HCl 150 mg PO HS 11/24/15 [History] metFORMIN [Glucophage] 500 mg PO BIDWM 11/24/15 [History] risperiDONE [Risperidone] 1 mg PO DAILY 11/24/15 [History] Lisinopril-HCTZ 20-12.5 [Prinzide 20-12.5] 1 each PO DAILY 12/08/15 [History] Omeprazole [PriLOSEC] 20 mg PO DAILY 12/10/15 [History] Montelukast Sodium [Singulair] 10 mg PO DAILY 12/31/16 [History] Ferrous Sulfate [Iron] 325 mg PO DAILY 10/20/17 [History] Loratadine [Claritin] 10 mg PO DAILY #10 tablet 10/20/17 [Rx] Buspirone HCl [Buspar] 10 mg PO BID PRN 11/12/17 [History] Guaifenesin [Mucinex] 600 mg PO BID 11/12/17 [History] 3 Allergy/AdvReac Type Severity Reaction Status Date / Time codeine AdvReac Hives Verified 10/20/17 14:29 bees Allergy Mild Hives Uncoded 10/20/17 14:29 - Meds/Allergy Pre-op Review Medications Reviewed: Yes Allergies Reviewed: Yes Beta Blockers on Current Med List: No Anesthesia Results - Labs 11/14/17 03:59 11/14/17 03:59 10/16/14 stress EF-80% No ischemia - Imaging EKG: report reviewed (SR) Anesthesia Exam O2 Sat Weight 93.4 kg O2 Sat by Pulse Oximetry 96 O2 Sat by Pulse Oximetry 96 O2 Sat by Pulse Oximetry 95 O2 Sat by Pulse Oximetry 94 O2 Sat by Pulse Oximetry 96 O2 Sat by Pulse Oximetry 97 O2 Sat by Pulse Oximetry 96 Vital Signs Temp Pulse Resp BP Pulse Ox 98.4 F 112 20 200/92 95 11/12/17 20:41 11/12/17 20:41 11/12/17 20:41 11/12/17 20:41 11/12/17 20:41 Blood glucose: 137 NPO (# of Hours): > 8 Hrs Pain Scale: 0 Pain Scale Used: Numeric (1 - 10) - HEENT Pupil (Motor): Pupils equal, EOMI Mallampati: II Teeth: Edentulous Oral Opening: Greater than 3 - PARING MACHINE OPERATOR LOC: Oriented PARING MACHINE OPERATOR Motor: Normal RUE, Normal LUE, Normal RLE, Normal LLE, Normal Face PARING MACHINE OPERATOR Sensory: Normal: RUE, LUE, RLE, LLE, Face - Cardiac Rhythm: Regular Murmur: None JVD: No Carotid Bruit: No - Pulmonary Breath Sounds: bilateral Clear Respiratory Effort: Symmetrical Anesthesia Assess/Plan ASA Score: 3 Modified [place] Scale for Level of Consciousness: Cooperative, oriented, and tranquil Anesthetic Plan: MAC Autologous Blood: Yes Monitoring Plan: Standard Monitors Recovery Plan: Other
[2017-11-14] MEDS ORDERED: Lidocaine -MPF 2% 2 ML VIAL ONE (12:44)
[2017-11-14] MEDS ORDERED: *HR* Propofol 200 MG/20 ML VIAL IVP ONE (12:44)
[2017-11-14] MEDS ORDERED: 0.9 % Sodium Chloride 1,000 ML IVC SCH (13:00)
--- NOTE | 2017-11-14 14:14 | Anesthesia Evaluation Post Op ---
Date of Encounter: 11/14/17 Time of Encounter: 14:13 - Vital Signs Vital Signs: O2 Sat Weight 93.4 kg O2 Sat by Pulse Oximetry 95 O2 Sat by Pulse Oximetry 96 O2 Sat by Pulse Oximetry 96 O2 Sat by Pulse Oximetry 95 O2 Sat by Pulse Oximetry 94 O2 Sat by Pulse Oximetry 96 O2 Sat by Pulse Oximetry 97 O2 Sat by Pulse Oximetry 96 Vital Signs Temp Pulse Resp BP Pulse Ox 98.4 F 112 20 200/92 95 11/12/17 20:41 11/12/17 20:41 11/12/17 20:41 11/12/17 20:41 11/12/17 20:41 Vital Signs/O2 Sat/Glucose, Most Current Temp Pulse Resp BP Pulse Ox 11/14/17 12:45 98.0 F 87 18 149/71 95 11/14/17 11:29 97.9 F 96 18 135/71 96 - Lungs Lungs: Clear Ascult./Percussion - Airway Airway: Non-obstructed - Cardiovascular Regular Rate, Baseline Rhythm - Mental Status Mental Status: Alert & Oriented, Answers Appropriately - Pain Pain Scale: 0 Pain Scale used: Numeric (1 - 10) - Nausea Vomiting Nausea Vomiting: Not Present - Hydration Hydration: Tolerates oral liquids, Has not voided - Discharge PostOp Status: Transfer Patient to floor
--- NOTE | 2017-11-14 15:07 | Discharge Summary ---
- NOTES TO OUTPATIENT PROVIDER Notes to Outpatient Provider: f/u with GI within a week. f/u with PCP within a week. Orders not resulted at time of discharge: Pending orders 11/14/17 14:04 Surgical Pathology [PTH] Routine Date of Encounter: 11/14/17 Time of Encounter: 15:03 - Discharge Diagnosis (1) Obesity (BMI 30-39.9) Priority: Secondary Status: Chronic (2) Diabetes mellitus Priority: Secondary Status: Chronic Qualifiers: Diabetes mellitus type: type 2 Diabetes mellitus group home insulin use: without group home use Diabetes mellitus complication status: without complication Qualified Code(s): E11.9 - Type 2 diabetes mellitus without complications (3) Dyslipidemia Priority: Secondary Status: Chronic (4) Sensation of foreign body in esophagus Priority: Primary Status: Acute (5) Chest pain Priority: Primary Status: Acute Qualifiers: Chest pain type: unspecified Qualified Code(s): R07.9 - Chest pain, unspecified (6) Hypertensive urgency Priority: Primary Status: Acute (7) Electrolyte and fluid disorder Priority: Primary Status: Acute (8) Leukocytosis Priority: Primary Status: Acute Qualifiers: Leukocytosis type: unspecified Qualified Code(s): D72.829 - Elevated white blood cell count, unspecified (9) DVT prophylaxis Priority: Primary Status: Acute Hospital course: Mariel Stephen is a 62 year old woman with diabetes and poorly controlled hypertension who presents to the ER with the complaint of chest heaviness that started today. Information obtained from her is that over the past few days her blood pressure has been significantly uncontrolled and that she saw her PCP earlier today with no recommendations given. She then began to feel as though her chest was heavy which is a new occurrence therefore decided to seek medical attention. On arrival her blood pressure was 200/92 mmHg. Thus far she was given 20 mg of labetalol IVP with no significant response. She also received loading dose of aspirin and 1 mg of lorazepam for anxiety. She had no ischemic electrocardiographic changes and her initial troponin was negative. She denies an active smoking history stating that she quit 3 years ago. Patient chest pain resolved after blood pressure was under control. Serial troponin was negative, EKG show any acute ST-T change. Due to the symptoms of dysphagia, patient underwent EGD on 11/14/2017, which was normal. Her BP meds has been adjusted. Patient blood pressure was well controlled before discharge. She will be discharged home today with follow-up with PCP and GI within a week. Discharge discussed with: patient, family Time spent discussing smoking cessation with patient: more than 10 minutes - Time Spent with Patient Total time spent providing and/or coordinating discharge services: Greater than 30 minutes - Discharge Medications Prescriptions: amLODIPine [Norvasc] 10 mg PO DAILY #30 tablet Lisinopril [Zestril] 40 mg PO DAILY #30 tablet Home Medications: Aspirin 81 mg PO DAILY 11/24/15 [History] Bupropion HCl [Wellbutrin Xl] 300 mg PO DAILY 11/24/15 [History] Cholecalciferol (Vitamin D3) [Vitamin D3] 5,000 unit PO QWEEK 11/24/15 [History] FLUoxetine HCl [Prozac] 20 mg PO DAILY 11/24/15 [History] Fexofenadine HCl 180 mg PO DAILY 11/24/15 [History] Gabapentin [Neurontin] 300 mg PO DAILY 11/24/15 [History] Multivitamin with Iron [Multivitamins with Iron] 1 each PO DAILY 11/24/15 [ History] Simvastatin [Zocor] 20 mg PO QPM 11/24/15 [History] Trazodone HCl 150 mg PO HS 11/24/15 [History] metFORMIN [Glucophage] 500 mg PO BIDWM 11/24/15 [History] risperiDONE [Risperidone] 1 mg PO DAILY 11/24/15 [History] Omeprazole [PriLOSEC] 20 mg PO DAILY 12/10/15 [History] Montelukast Sodium [Singulair] 10 mg PO DAILY 12/31/16 [History] Ferrous Sulfate [Iron] 325 mg PO DAILY 10/20/17 [History] Loratadine [Claritin] 10 mg PO DAILY #10 tablet 10/20/17 [Rx] Buspirone HCl [Buspar] 10 mg PO BID PRN 11/12/17 [History] Guaifenesin [Mucinex] 600 mg PO BID 11/12/17 [History] Lisinopril [Zestril] 40 mg PO DAILY #30 tablet 11/14/17 [Rx] amLODIPine [Norvasc] 10 mg PO DAILY #30 tablet 11/14/17 [Rx] Allergies/Adverse Reactions: 3 Allergy/AdvReac Type Severity Reaction Status Date / Time codeine AdvReac Hives Verified 10/20/17 14:29 bees Allergy Mild Hives Uncoded 10/20/17 14:29 Date of admission: 11/12/17 22:52 Primary care physician: Elda Anders Consults: 11/12/17 23:41 Consult to Gastroenterology [CONS] Routine Consulting Provider: [facility] [place] Reason for Consult: Patient complaining of dysphagia ever since swallowing a large tablet with only tolerance to liquids now. Call Completed: No Anticipated date of discharge: 11/14/17 - Constitutional Vitals: Temp Pulse Resp BP Pulse Ox 98.0 F 87 18 149/71 95 11/14/17 12:45 11/14/17 12:45 11/14/17 12:45 11/14/17 12:45 11/14/17 12:45 General appearance: Present: cooperative, A&O X 3 Exam: Vitals: Reviewed General: Obese, NAD Skin: Warm and supple HEENT: Moist mucous membranes. No conjunctivae pallor. Neck: No lymphadenopathy. No JVD. No carotid bruits. No palpable thyroid. Chest: Normal thoracic expansion. Normal breath sounds. Clear to auscultation. Heart: Normal S1 & S2; rhythmic. No rubs or murmurs. Abdomen: Non-distended, soft and non-tender to palpation. No peritoneal reaction. Extremities: No clubbing, cyanosis or edema. No calf tenderness. Normal distal pulses. Neurological: Awake, alert and oriented to person, place and time. No focal deficits. Psych: Affect appropriate. - Patient Status Disposition: Home, Self-Care Condition: Fair Functional capacity at discharge: independent ambulation Overall status at discharge: patient is back to baseline - Discharge Instructions Follow Up With: Elda Anders BOOKSTORE CLERK [Advanced Practice Nurse] - - Diet and Activity Activity: increase activity as tolerated Diet: diabetic diet
[2017-11-14 15:21] VITALS: BP 145/72
--- NOTE | 2017-11-15 10:59 | Electrocardiograph Report ---
[address] [place] [address] Test Date: 2017-11-12 Pat Name: Mariel Stephen Department: [id number] Room: 3B36 Gender: F Associate Curator: : 1955 Requested By: Brent Prescott Order Number: [id number] Reading MD: Devin Mauricio Measurements Intervals [place] Rate: 111 P: 48 ID: [id number] QRS: -4 QRSD: 104 T: 23 QT: 333 QTc: 453 Interpretive Statements Sinus tachycardia Inferior infarct, age indeterminate Electronically Signed On 11-15-2017 10:57:42 EDT by Devin Mauricio
== END 2017-11-14 16:33 | disposition home or self-care (01) ==
LOC: 3BNU 20:30 → EMEROOARM 20:30 → 3BNU 23:38
PROVIDERS: ADMIT Internal Medicine; ATTEND Internal Medicine
PROC: ENDOEBX (2017-11-14 13:00)

== ENCOUNTER 2019-10-13 17:06 | Observation (INO) ==
[2019-10-13] MEDS ORDERED: Isovue-370 500 ML BOTTLE IVP ONE (18:26)
[2019-10-13 18:56] LABS: Bilirubin,Urine Negative (Negative); Blood,Urine Negative (Negative); Clarity,Urine Clear (Clear); Color,Urine Yellow (Yellow); Glucose,Urine (UA) Normal (Normal); Ketones,Urine Trace mg/dL (Negative); Leukocyte Esterase,Urine Negative (Negative); Nitrite,Urine Negative (Negative); Protein,Urine Trace mg/dL (Neg-Trace); Urobilinogen,Urine Normal (Normal)
[2019-10-13 18:58] LABS: Basophils % 0.3 %; Eosinophils % 0.3 %; Hematocrit 31.8 % (35.3-44.9); Hemoglobin 11.3 g/dL (11.5-15.4); Immature Granulocytes % 1.7 % (0-4); Lymphocytes # 1.1 K/mcL (0.6-4.6); Mean Corpuscular HGB Conc 35.5 g/dL (31.6-35.5); Mean Corpuscular Hemoglobin 26.5 pg (28.0-33.3); Mean Corpuscular Volume 74.5 fL (83.0-100.0); Mean Platelet Volume 9.1 fL (9.4-12.4); Monocytes # 0.6 K/mcL (0.0-1.3); Monocytes % 4.4 %; Neutrophils # 12.1 K/mcL (1.6-8.9); Platelet Count 355 K/mcL (140-400); Red Blood Count 4.27 M/mcL (3.82-4.97); Red Cell Distribution Width 12.5 % (11.5-14.5); Segmented Neutrophils % 85.3 %; White Blood Count 14.2 K/mcL (4.3-11.1)
[2019-10-13 19:23] LABS: Alanine Aminotransferase 22 Units/L (7-52); Albumin 4.5 g/dL (3.5-5.7); Albumin/Globulin Ratio 1.7 (1.1-2.2); Alkaline Phosphatase 84 Units/L (34-104); Aspartate Amino Transferase 20 Units/L (13-39); BUN/Creatinine Ratio 10 (6-26); Bilirubin,Direct 0.1 mg/dL (0.0-0.2); Bilirubin,Indirect 0.5 mg/dL (0.0-1.0); Bilirubin,Total 0.6 mg/dL (0.3-1.0); Blood Urea Nitrogen 10 mg/dL (8-23); Calcium 9.9 mg/dL (8.6-10.3); Carbon Dioxide 22 mEq/L (23-29); Chloride 78 mEq/L (98-107); Globulin 2.6 g/dL (2.4-3.5); Glucose 144 mg/dL (70-105); Lipase 12 Units/L (11-82); Osmolality,Calculated 244 (280-300); Potassium 4.1 mEq/L (3.5-5.1); Sodium 116 mEq/L (136-145); Total Protein 7.1 g/dL (6.4-8.9); eGFR For African Americans > 60 (> 60); eGFR For Non-African Americans 54 (> 60)
[2019-10-13] MEDS ORDERED: 0.9 % Sodium Chloride 1,000 ML IVC ONE (19:36)
[2019-10-13 20:02] LABS: Sodium, Urine 40.8 mEq/L
[2019-10-13] MEDS ORDERED: *HR* LORazepam 1 MG TABLET PO ONE (22:16)
[2019-10-13] MEDS ORDERED: Ondansetron 4 MG/2 ML VIAL IVP PRN (23:13)
[2019-10-13] MEDS ORDERED: Naloxone 0.4 MG/ML INJ IVP PRN (23:13)
[2019-10-13] MEDS ORDERED: 0.9 % Sodium Chloride 1,000 ML IVC SCH (23:15)
[2019-10-13] MEDS ORDERED: *HR* Labetalol 20 MG/4 ML SYRINGE IVP PRN (23:32)
[2019-10-13] MEDS ORDERED: Dextrose Gel 15 GM/37.5 ML TUBE PO PRN ×2 (23:34)
[2019-10-13] MEDS ORDERED: D5% in Water 1,000 ML IVC PRN (23:34)
[2019-10-13] MEDS ORDERED: *HR* Dextrose 50 % in Water (Vial) 50 ML VIAL IVP PRN (23:34)
[2019-10-14] MEDS: traZODone 50 MG TABLET PO SCH ×2 (00:31→20:08)
[2019-10-14] MEDS ORDERED: hydrOXYzine pamoate 25 MG CAPSULE PO ONE (00:32)
[2019-10-14 01:41] LABS: INR 1.1; Prothrombin Time 12.9 Seconds (9.4-12.1)
[2019-10-14 01:43] LABS: Basophils % 0.3 %; Eosinophils # 0.1 K/mcL (0.0-0.6); Eosinophils % 0.9 %; Hematocrit 31.3 % (35.3-44.9); Hemoglobin 10.8 g/dL (11.5-15.4); Immature Granulocytes % 1.6 % (0-4); Lymphocytes # 1.8 K/mcL (0.6-4.6); Lymphocytes % 17.1 %; Mean Corpuscular HGB Conc 34.5 g/dL (31.6-35.5); Mean Corpuscular Hemoglobin 26.5 pg (28.0-33.3); Mean Corpuscular Volume 76.7 fL (83.0-100.0); Mean Platelet Volume 9.7 fL (9.4-12.4); Monocytes # 0.9 K/mcL (0.0-1.3); Neutrophils # 7.6 K/mcL (1.6-8.9); Platelet Count 323 K/mcL (140-400); Red Blood Count 4.08 M/mcL (3.82-4.97); Red Cell Distribution Width 12.5 % (11.5-14.5); Segmented Neutrophils % 72.1 %; White Blood Count 10.6 K/mcL (4.3-11.1)
[2019-10-14 02:00] LABS: BUN/Creatinine Ratio 8 (6-26); Blood Urea Nitrogen 8 mg/dL (8-23); Calcium 9.4 mg/dL (8.6-10.3); Carbon Dioxide 24 mEq/L (23-29); Chloride 85 mEq/L (98-107); Glucose 156 mg/dL (70-105); Osmolality,Calculated 254 (280-300); Potassium 3.6 mEq/L (3.5-5.1); Sodium 121 mEq/L (136-145); eGFR For African Americans > 60 (> 60); eGFR For Non-African Americans 54 (> 60)
[2019-10-14 02:01] LABS: Magnesium 1.5 mg/dL (1.6-2.6); Phosphorous 2.2 mg/dL (2.7-4.5)
[2019-10-14 02:22] LABS: BUN/Creatinine Ratio 9 (6-26); Blood Urea Nitrogen 8 mg/dL (8-23); Calcium 9.3 mg/dL (8.6-10.3); Carbon Dioxide 22 mEq/L (23-29); Chloride 85 mEq/L (98-107); Glucose 160 mg/dL (70-105); Osmolality,Calculated 252 (280-300); Potassium 3.6 mEq/L (3.5-5.1); Sodium 120 mEq/L (136-145); eGFR For African Americans > 60 (> 60); eGFR For Non-African Americans > 60 (> 60)
[2019-10-14 05:04] LABS: BUN/Creatinine Ratio 10 (6-26); Blood Urea Nitrogen 9 mg/dL (8-23); Calcium 9.2 mg/dL (8.6-10.3); Carbon Dioxide 24 mEq/L (23-29); Chloride 87 mEq/L (98-107); Glucose 140 mg/dL (70-105); Osmolality,Calculated 253 (280-300); Potassium 3.8 mEq/L (3.5-5.1); Sodium 121 mEq/L (136-145); eGFR For African Americans > 60 (> 60); eGFR For Non-African Americans > 60 (> 60)
[2019-10-14] MEDS: *HR* Enoxaparin 40 MG/0.4 ML SYRINGE SQ SCH (06:41)
[2019-10-14 06:51] LABS: BUN/Creatinine Ratio 9 (6-26); Blood Urea Nitrogen 9 mg/dL (8-23); Calcium 9.4 mg/dL (8.6-10.3); Carbon Dioxide 27 mEq/L (23-29); Chloride 87 mEq/L (98-107); Glucose 126 mg/dL (70-105); Osmolality,Calculated 254 (280-300); Potassium 3.7 mEq/L (3.5-5.1); Sodium 122 mEq/L (136-145); eGFR For African Americans > 60 (> 60); eGFR For Non-African Americans 55 (> 60)
[2019-10-14] MEDS: Insulin LISPRO 300 UNITS/3 ML VIAL SQ SCH ×3 (07:53→16:29)
[2019-10-14] MEDS: BuPROPion XL (24 HR) 150 MG TABLET PO SCH (07:54)
[2019-10-14] MEDS: amLODIPine 5 MG TABLET PO SCH (07:54)
[2019-10-14] MEDS: Multivit/Ca/Min/Fe/FA 1 TAB TABLET PO SCH (07:54)
[2019-10-14] MEDS: Aspirin 81 MG TAB.CHEW PO SCH (07:54)
[2019-10-14] MEDS: risperiDONE 1 MG TABLET PO SCH (07:54)
[2019-10-14] MEDS: Loratadine 10 MG TABLET PO SCH (07:55)
[2019-10-14] MEDS: FLUoxetine 20 MG CAPSULE PO SCH (07:55)
[2019-10-14] MEDS: lisinopriL 20 MG TABLET PO SCH (07:55)
[2019-10-14] MEDS ORDERED: polyethylene glycoL 3350 17 GM POWD.PACK PO SCH (09:00)
[2019-10-14 11:11] LABS: BUN/Creatinine Ratio 9 (6-26); Blood Urea Nitrogen 9 mg/dL (8-23); Calcium 9.3 mg/dL (8.6-10.3); Carbon Dioxide 27 mEq/L (23-29); Chloride 87 mEq/L (98-107); Glucose 130 mg/dL (70-105); Osmolality,Calculated 254 (280-300); Potassium 3.5 mEq/L (3.5-5.1); Sodium 122 mEq/L (136-145); eGFR For African Americans > 60 (> 60); eGFR For Non-African Americans 55 (> 60)
[2019-10-14] MEDS: Sennosides/Docusate Sodium TABLET PO SCH ×2 (12:15→20:08)
[2019-10-14] MEDS ORDERED: Insulin LISPRO 300 UNITS/3 ML VIAL SQ SCH (21:00)
[2019-10-14] MEDS ORDERED: Insulin DETEMIR 100 UNIT/ML X5UNITS SQ SCH (21:00)
[2019-10-15 02:47] LABS: Basophils % 0.4 %; Eosinophils # 0.2 K/mcL (0.0-0.6); Eosinophils % 3.1 %; Hematocrit 27.1 % (35.3-44.9); Hemoglobin 9.3 g/dL (11.5-15.4); Immature Granulocytes % 1.6 % (0-4); Lymphocytes # 1.8 K/mcL (0.6-4.6); Lymphocytes % 23.8 %; Mean Corpuscular HGB Conc 34.3 g/dL (31.6-35.5); Mean Corpuscular Hemoglobin 26.6 pg (28.0-33.3); Mean Corpuscular Volume 77.4 fL (83.0-100.0); Mean Platelet Volume 9.7 fL (9.4-12.4); Monocytes # 0.6 K/mcL (0.0-1.3); Monocytes % 7.3 %; Neutrophils # 4.8 K/mcL (1.6-8.9); Platelet Count 276 K/mcL (140-400); Segmented Neutrophils % 63.8 %; White Blood Count 7.5 K/mcL (4.3-11.1)
[2019-10-15 03:05] LABS: BUN/Creatinine Ratio 13 (6-26); Blood Urea Nitrogen 14 mg/dL (8-23); Calcium 9.3 mg/dL (8.6-10.3); Carbon Dioxide 24 mEq/L (23-29); Chloride 88 mEq/L (98-107); Glucose 132 mg/dL (70-105); Magnesium 2.4 mg/dL (1.6-2.6); Osmolality,Calculated 258 (280-300); Phosphorous 4.5 mg/dL (2.7-4.5); Potassium 3.6 mEq/L (3.5-5.1); Sodium 123 mEq/L (136-145); eGFR For African Americans > 60 (> 60); eGFR For Non-African Americans 51 (> 60)
[2019-10-15] MEDS: *HR* Enoxaparin 40 MG/0.4 ML SYRINGE SQ SCH (05:10)
[2019-10-15] MEDS: Insulin LISPRO 300 UNITS/3 ML VIAL SQ SCH ×2 (09:08→11:30)
[2019-10-15] MEDS: FLUoxetine 20 MG CAPSULE PO SCH (09:09)
[2019-10-15] MEDS: Multivit/Ca/Min/Fe/FA 1 TAB TABLET PO SCH (09:09)
[2019-10-15] MEDS: lisinopriL 20 MG TABLET PO SCH (09:09)
[2019-10-15] MEDS: risperiDONE 1 MG TABLET PO SCH (09:09)
[2019-10-15] MEDS: BuPROPion XL (24 HR) 150 MG TABLET PO SCH (09:09)
[2019-10-15] MEDS: amLODIPine 5 MG TABLET PO SCH (09:10)
[2019-10-15] MEDS: Loratadine 10 MG TABLET PO SCH (09:10)
[2019-10-15] MEDS: Aspirin 81 MG TAB.CHEW PO SCH (09:10)
[2019-10-15] MEDS: Sennosides/Docusate Sodium TABLET PO SCH (09:10)
[2019-10-15 10:35] VITALS: BP 117/68
== END 2019-10-15 14:48 | disposition home or self-care (01) ==
LOC: 2ANU 17:06 → EMEROOARM 17:06 → SUATTDRO 23:09 → 2ANU 10-14 00:05
PROVIDERS: ADMIT Internal Medicine; ATTEND Student in an Organized Health Care Education/Training Program